=== PATIENT | male | born 1935 | race Caucasian/White ===

== ENCOUNTER 2020-08-23 19:55 | Emergency (ER) | payer MEDICARE, BC ==
[2020-08-23 20:01] VITALS: BP 167/73; PULSE 78
[2020-08-23] MEDS ORDERED: Orphenadrine 60 MG/2 ML Inj IM ONE (20:02)
[2020-08-23] MEDS ORDERED: Ketorolac 30 MG/ML SDV IM ONE (20:02)
--- NOTE | 2020-08-23 20:14 | EDM.PDOC ---
ED HPI GENERAL MEDICAL PROBLEM - General Chief Complaint: General Stated Complaint: Hip Pain Time Seen by Provider: 08/23/20 20:00 Source of Information: Reports: Patient - History of Present Illness INITIAL COMMENTS - FREE TEXT/NARRATIVE: Tyler is an 84 year old male who presents to ER with complaints of left lower back and hip pain. Has not had any recent falls or injuries but is "quite uncomfortable". States difficult to lie or sit as the pain is constant. Has been "inactive today due to the pain". He states 2 days ago his right lower back hurt but now he feels a constant sharp pain in the left hip. States ambulating today with a walker as does have pain with walking and is worried about falls. Has not taken anything for the discomfort. No fevers, abdominal pain, nausea or vomiting. No urinary symptoms. No cough or shortness of breath. Onset: Today Duration: Hour(s): Location: Reports: Back, Lower Extremity, Left Quality: Reports: Ache Severity: Moderate Improves with: Reports: Rest Associated Symptoms: Denies: Confusion, Chest Pain, Cough, Fever/Chills, Loss of Appetite, Nausea/Vomiting, Shortness of Breath l lower back Pain Score (Numeric/FACES): 7 - Related Data Allergies Allergy/AdvReac Type Severity Reaction Status Date / Time No Known Allergies Allergy Verified 08/14/16 10:51 Home Meds: Home Meds Aspirin 325 mg PO DAILY 08/13/16 [History] Cholecalciferol (Vitamin D3) [Vitamin D3] 2,000 unit PO DAILY 08/13/16 [History] Past Medical History Cardiovascular History: Reports: Aneurysm - Past Surgical History Cardiovascular Surgical History: Reports: AAA Repair Social & Family History - Family History Family Medical History: Noncontributory - Tobacco Use Tobacco Use Status *Q: Never Tobacco User Second Hand Smoke Exposure: No - Caffeine Use Caffeine Use: Reports: None - Recreational Drug Use Recreational Drug Use: No ED ROS GENERAL - Review of Systems Review Of Systems: See Below Constitutional: Denies: Fever, Chills, Malaise, Weakness, Fatigue, Decreased Appetite HEENT: Reports: No Symptoms Respiratory: Denies: Shortness of Breath, Cough Cardiovascular: Denies: Chest Pain, Edema, Lightheadedness Endocrine: Denies: Fatigue GI/Abdominal: Denies: Abdominal Pain, Constipation, Diarrhea, Nausea, Vomiting : Denies: No Symptoms Musculoskeletal: Reports: Back Pain, Joint Pain Skin: Reports: No Symptoms Neurological: Reports: Weakness ED EXAM, GENERAL - Physical Exam Exam: See Below Exam Limited By: No Limitations General Appearance: Alert, WD/WN, Mild Distress Ears: Normal External Exam, Normal TMs Nose: Normal Inspection, Normal Mucosa, No Blood Throat/Mouth: Normal Inspection, Normal Oropharynx Head: Normocephalic Neck: Normal Inspection, Supple, Non-Tender Respiratory/Chest: No Respiratory Distress, Lungs Clear, Normal Breath Sounds Cardiovascular: Regular Rate, Rhythm GI/Abdominal: Normal Bowel Sounds, Soft, Non-Tender Back Exam: Normal Inspection, Muscle Spasm, Paraspinal Tenderness. No: Vertebral Tenderness Extremities: Other (patient has pain with range of motion of both hips, stiff, limited movement chronically) Neurological: Alert, Oriented Skin Exam: Warm, Dry Course - Vital Signs Last Recorded V/S: Last Vital Signs Temp 98.3 F 08/23/20 19:56 Pulse 78 08/23/20 19:56 Resp 16 08/23/20 19:56 BP 167/73 H 08/23/20 19:56 Pulse Ox 96 08/23/20 19:56 - Orders/Labs/Meds Orders: Active Orders 24 hr Category Date Time Status Hip Min 2V or 3V w Pelvis Lt [CR] Stat Exams 08/23/20 20:01 Taken Lumbar Spine 2 or 3V [CR] Stat Exams 08/23/20 20:01 Taken Meds: Medications Discontinued Medications Generic Name Dose Route Start Last Admin Trade Name Kdq PRN Reason Stop Dose Admin Ketorolac Tromethamine 30 mg 08/23/20 20:02 08/23/20 20:10 Toradol IM 08/23/20 20:03 30 mg ONETIME ONE Administration Orphenadrine Citrate 60 mg 08/23/20 20:02 08/23/20 20:09 Norflex IM 08/23/20 20:03 60 mg ONETIME ONE Administration - Re-Assessments/Exams Free Text/Narrative Re-Assessment/Exam: 08/23/20 20:40 Xrays show a scoliosis of the spine, 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 Discussed use of pain meds with patient and safety. Needs to be cautious with change in positions due to possible sedation but unable to given NSAIDs safely either due to Eliquis at this time. May need to see physical therapy if pain persists. Departure - Departure Time of Disposition: 20:46 Disposition: Home, Self-Care 01 Condition: Fair Clinical Impression: Low back pain - Discharge Information *PRESCRIPTION DRUG MONITORING PROGRAM REVIEWED*: No *COPY OF PRESCRIPTION DRUG MONITORING REPORT IN PATIENT KELVIN: No Instructions: Acute Back Pain, Adult Referrals: Roro Keen PA [Primary Care Provider] - Forms: ED Department Discharge Additional Instructions: 1. Rest 2. Ice or heat to affected area every 2-3 hours 3. [place] 5/325 one tab every 6 hours as needed for pain 4. Norflex 100 mg every 12 hours for muscle spasms 5. See physical therapy this week if pain persists. Sepsis Event Note (ED) - Evaluation Sepsis Screening Result: No Definite Risk - Focused Exam Vital Signs: Vital Signs Temp Pulse Resp BP Pulse Ox 08/23/20 19:56 98.3 F 78 16 167/73 H 96 - My Orders Last 24 Hours: My Active Orders 08/23/20 20:01 Hip Min 2V or 3V w Pelvis Lt [CR] Stat Lumbar Spine 2 or 3V [CR] Stat - Assessment/Plan Last 24 Hours: My Active Orders 08/23/20 20:01 Hip Min 2V or 3V w Pelvis Lt [CR] Stat Lumbar Spine 2 or 3V [CR] Stat
[2020-08-23] MEDS ORDERED: Acetaminophen/HYDROcodone 325-5 MG Tab ONE (20:31)
[2020-08-23] MEDS ORDERED: Orphenadrine 100 MG Tab.ER ONE (20:31)
[2020-08-23] MEDS ORDERED: Take Home: Orphenadrine 100 MG Tab.ER, 4 Tab Pack PO ONE (20:45)
[2020-08-23] MEDS ORDERED: Take Home: Acetaminophen/HYDROcodone 325-5 MG, 2 Tab Pack PO ONE (20:45)
== END 2020-08-23 20:54 | disposition home or self-care (01) ==
LOC: CC.ED 19:55
DX: M54.5 Low back pain (principal); M25.552 Pain in left hip; Z79.82 Long term (current) use of aspirin; Z79.899 Other long term (current) drug therapy
CPT/HCPCS: 72100; 96372; 99283; 99283-25; A9270-GY; J1885; J2360

== ENCOUNTER 2023-04-02 07:26 | Emergency (ER) | payer MEDICARE, BC ==
[2023-04-02 07:47] LABS: BASOPHILS ABSOLUTE AUTO 0.01 10^3/uL (0.00-0.50); BASOPHILS PERCENT AUTO 0.1 % (0-1); EOSINOPHILS ABSOLUTE AUTO 0.19 10^3/uL (0.00-1.50); EOSINOPHILS PERCENT AUTO 2.8 % (0-6); HEMATOCRIT 44.4 % (42.0-52.0); HEMOGLOBIN 14.1 g/dL (14.0-18.0); IMMATURE GRAN ABSOLUTE AUTO 0.01 10^3/uL (0.00-0.49); IMMATURE GRAN PERCENT AUTO 0.1 % (0.0-4.9); LYMPHOCYTES ABSOLUTE AUTO 1.49 10^3/uL (0.60-5.00); LYMPHOCYTES PERCENT AUTO 22.3 % (24-44); MEAN CORPUSCULAR HGB CONC 31.8 g/dL (32.0-36.0); MEAN CORPUSCULAR VOLUME 97.6 fL (83.0-97.0); MONOCYTES ABSOLUTE AUTO 0.66 10^3/uL (0.00-1.50); MONOCYTES PERCENT AUTO 9.9 % (0-10); NEUTROPHILS ABSOLUTE AUTO 4.32 x10^3/uL (1.80-8.00); NEUTROPHILS PERCENT AUTO 64.8 % (41-71); PLATELET COUNT,PLT 182 10^3/uL (150-400); RED BLOOD CELL COUNT 4.55 x10^6/uL (4.50-6.00); WHITE BLOOD CELL COUNT,WBC 6.7 10^3/uL (4.0-11.0)
[2023-04-02 08:00] LABS: ALBUMIN 3.4 g/dL (3.4-5.0); BILIRUBIN TOTAL 0.9 mg/dL (0.0-1.0); CALCIUM 9.1 mg/dL (8.4-10.1); CREATININE 0.9 mg/dL (0.7-1.3); EST CRCL DRUG DOSING (CG) 53.04 mL/min; MAGNESIUM 1.7 mg/dL (1.8-2.4); POTASSIUM,K 4.1 mEq/L (3.5-5.0); PROTEIN TOTAL,TP 6.9 g/dL (6.4-8.2)
[2023-04-02 08:45] VITALS: BP 145/62; PULSE 61
== END 2023-04-02 08:45 | disposition home or self-care (01) ==
LOC: CC.ED 07:26
DX: K59.00 Constipation, unspecified (principal); Z79.01 Long term (current) use of anticoagulants
CPT/HCPCS: 36415; 80053; 83735; 85025; 99283; 99284